=== PATIENT | male | born 1960 | race Caucasian/White ===

== ENCOUNTER 2017-11-12 07:30 | Inpatient (IN) | payer MEDICARE, OTHER ==
[2017-11-12] MEDS: CEFEPIME 2GM/50 ML (PMX) 50 ML IVPB (08:00)
[2017-11-12 08:04] LABS: ADD MAN DIFF? NO
[2017-11-12 08:08] LABS: WHITE BLOOD COUNT 19.4 10^3/ul (4.8-10.8)
[2017-11-12 08:08] LABS: BASOPHILS % 0.2 % (0.0-2.0); EOSINOPHILS # 0.1 10^3/ul (0.0-0.5); EOSINOPHILS % 0.4 % (0.0-7.0); HEMATOCRIT 37.3 % (42.0-52.0); HEMOGLOBIN 11.4 g/dl (14.0-18.0); LYMPHOCYTES # 0.7 10^3/ul (0.8-2.9); LYMPHOCYTES % 3.7 % (15.0-51.0); MEAN CORPUSCULAR HEMOGLOBIN 28.7 pg (29.0-33.0); MEAN CORPUSCULAR HGB CONC 30.6 g/dl (32.0-37.0); MEAN PLATELET VOLUME 9.7 fl (7.4-10.4); MONOCYTE # 1.1 10^3/ul (0.3-0.9); MONOCYTES % 5.6 % (0.0-11.0); NEUTROPHIL # 17.4 10^3/ul (1.6-7.5); NEUTROPHILS % 89.7 % (39.0-77.0); PLATELET COUNT 225 10^3/UL (140-415); RED BLOOD COUNT 3.97 10^6/ul (4.70-6.10); RED CELL DISTRIBUTION WIDTH 12.6 % (11.5-14.5)
[2017-11-12 08:30] LABS: INR 1.04; PARTIAL THROMBOPLASTIN TIME 35.1 Sec (25.0-35.0); PROTIME 13.7 Sec (11.9-14.9); PT RATIO 1.1
[2017-11-12] MEDS: morphine 4 MG/ML VIAL IV (08:32)
[2017-11-12 08:37] LABS: LACTIC ACID 0.8 mmol/L (0.5-2.0)
[2017-11-12 08:43] LABS: ALANINE AMINOTRANSFERASE 31 IU/L (13-69); ALBUMIN 4.1 g/dl (3.3-4.9); ALBUMIN/GLOBULIN RATIO 1.07; ALKALINE PHOSPHATASE 150 IU/L (42-121); ASPARTATE AMINO TRANSFERASE 21 IU/L (15-46); BILIRUBIN,INDIRECT 0.1 mg/dl (0-1.1); BILIRUBIN,TOTAL 0.1 mg/dl (0.2-1.3); BLOOD UREA NITROGEN 12 mg/dl (7-20); CALCIUM 9.6 mg/dl (8.4-10.2); CHLORIDE 94 mmol/L (97-110); CREATININE 0.58 mg/dl (0.61-1.24); GLUCOSE 107 mg/dl (70-220); POTASSIUM 4.3 mmol/L (3.5-5.1); SODIUM 146 mmol/L (135-144); TOTAL PROTEIN 7.9 g/dl (6.1-8.1)
[2017-11-12 09:04] LABS: ANION GAP 15 (8-16); TROPONIN-I < 0.012 ng/ml (0.00-0.12)
[2017-11-12 09:07] LABS: CARBON DIOXIDE 41 mmol/L (21-31)
[2017-11-12] MEDS: LACTATED RINGER'S 2,330 ML IV (09:43)
[2017-11-12] MEDS ORDERED: ARTIFICIAL TEARS 15 ML OPH BOTH EYES (10:00)
[2017-11-12] MEDS ORDERED: ACETAMINOPHEN 325 MG TAB PO (10:00)
[2017-11-12] MEDS ORDERED: BISACODYL 10 MG SUPP PR (10:00)
[2017-11-12] MEDS ORDERED: MAGNESIUM HYDROXIDE 30ML CUP PO (10:00)
[2017-11-12] MEDS ORDERED: ONDANSETRON 4 MG INJ IV (10:00)
[2017-11-12 10:16] LABS: ADD UMIC NO; UR ASCORBIC ACID 40 mg/dL (NEGATIVE); UR BACTERIA FEW /HPF (NONE SEEN); UR BILIRUBIN (Dip) NEGATIVE (NEGATIVE); UR BLOOD (Dip) NEGATIVE (NEGATIVE); UR CLARITY SLIGHTLY CLOUDY (CLEAR); UR COLOR YELLOW (YELLOW); UR GLUCOSE (Dip) NEGATIVE (NEGATIVE); UR KETONES (Dip) TRACE mg/dL (NEGATIVE); UR LEUKOCYTE ESTERASE (Dip) NEGATIVE Leu/ul (NEGATIVE); UR MUCUS MANY /HPF (NONE SEEN); UR NITRITE (Dip) NEGATIVE (NEGATIVE); UR RBC 0 /HPF (0-5); UR SPECIFIC GRAVITY (Dip) 1.024 (1.003-1.030); UR TOTAL PROTEIN (Dip) NEGATIVE (NEGATIVE); UR UROBILINOGEN (Dip) NEGATIVE (NEGATIVE); UR WBC 2 /HPF (0-5)
[2017-11-12 10:42] LABS: LACTIC ACID 0.7 mmol/L (0.5-2.0)
[2017-11-12] MEDS: ACETAMINOPHEN 325 MG TAB PO ×3 (12:00→23:51)
[2017-11-12 12:48] LABS: LACTIC ACID 0.7 mmol/L (0.5-2.0)
[2017-11-12] MEDS: ALBUTEROL 0.083% (NEB) 2.5 MG/3 ML AMP NEB (15:05)
[2017-11-12] MEDS: PANTOPRAZOLE (EC) 40 MG TAB PO (15:18)
[2017-11-12] MEDS ORDERED: NON-FORMULARY/PATIENT OWN MED (Omeprazole* 20 MG) PO (21:00)
[2017-11-12] MEDS: METOPROLOL 25 MG TAB PO ×2 (21:00→22:22)
[2017-11-12] MEDS: CHLORHEXIDINE GLUCONATE 15 ML UD CUP MM (21:06)
[2017-11-12] MEDS: HYDROCODONE/APAP (5/325) TAB PO (21:06)
[2017-11-12] MEDS: ATORVASTATIN 10 MG TAB PO (21:07)
[2017-11-12] MEDS: AMITRIPTYLINE 25 MG TAB PO (21:07)
[2017-11-12] MEDS: RANITIDINE 150 MG TAB PO (21:08)
[2017-11-12] MEDS: CHOLESTYRAMINE 4 GM PACKET PO (22:13)
[2017-11-13] MEDS: ACETAMINOPHEN 325 MG TAB PO ×3 (01:46→06:59)
[2017-11-13] MEDS: clonAZEPAM 0.5 MG TAB PO ×2 (02:26→23:12)
[2017-11-13] MEDS: PANTOPRAZOLE (EC) 40 MG TAB PO (06:59)
[2017-11-13 08:43] LABS: ADD MAN DIFF? NO
[2017-11-13 08:52] LABS: WHITE BLOOD COUNT 11.5 10^3/ul (4.8-10.8)
[2017-11-13 08:52] LABS: BASOPHILS % 0.2 % (0.0-2.0); EOSINOPHILS # 0.3 10^3/ul (0.0-0.5); EOSINOPHILS % 2.9 % (0.0-7.0); HEMATOCRIT 30.9 % (42.0-52.0); HEMOGLOBIN 9.7 g/dl (14.0-18.0); LYMPHOCYTES # 1.5 10^3/ul (0.8-2.9); LYMPHOCYTES % 12.6 % (15.0-51.0); MEAN CORPUSCULAR HEMOGLOBIN 29.2 pg (29.0-33.0); MEAN CORPUSCULAR HGB CONC 31.4 g/dl (32.0-37.0); MEAN CORPUSCULAR VOLUME 93.1 fl (82.0-101.0); MONOCYTES % 8.2 % (0.0-11.0); NEUTROPHIL # 8.7 10^3/ul (1.6-7.5); NEUTROPHILS % 75.6 % (39.0-77.0); PLATELET COUNT 216 10^3/UL (140-415); RED BLOOD COUNT 3.32 10^6/ul (4.70-6.10); RED CELL DISTRIBUTION WIDTH 12.4 % (11.5-14.5)
[2017-11-13 09:09] LABS: BLOOD UREA NITROGEN 21 mg/dl (7-20); CALCIUM 9.5 mg/dl (8.4-10.2); CHLORIDE 93 mmol/L (97-110); CREATININE 0.52 mg/dl (0.61-1.24); GLUCOSE 73 mg/dl (70-220); MAGNESIUM 1.8 mg/dl (1.7-2.5); PHOSPHORUS 3.9 mg/dl (2.5-4.9); SODIUM 142 mmol/L (135-144)
[2017-11-13 09:16] LABS: ANION GAP 13 (8-16)
[2017-11-13] MEDS: CEFEPIME 1GM/50 ML (PMX) 50 ML IVPB ×2 (09:17→21:51)
[2017-11-13] MEDS: ASCORBIC ACID 500 MG TAB PO (09:18)
[2017-11-13] MEDS: MAGNESIUM OXIDE 400 MG TAB PO (09:18)
[2017-11-13] MEDS: MULTIVITAMINS THERAPEUTIC TAB PO (09:18)
[2017-11-13] MEDS: ASPIRIN (EC) 81 MG TAB PO (09:18)
[2017-11-13] MEDS: LORATADINE 10 MG TAB PO (09:18)
[2017-11-13] MEDS: RANITIDINE 150 MG TAB PO ×2 (09:18→21:50)
[2017-11-13] MEDS: CHLORHEXIDINE GLUCONATE 15 ML UD CUP MM ×2 (09:19→21:51)
[2017-11-13] MEDS: METOPROLOL 25 MG TAB PO ×2 (09:19→21:50)
[2017-11-13] MEDS: CHOLESTYRAMINE 4 GM PACKET PO ×2 (09:19→21:50)
[2017-11-13 09:21] LABS: FREE T4 (FREE THYROXINE) 2.29 ng/dl (0.64-1.79)
[2017-11-13 09:24] LABS: CARBON DIOXIDE 40 mmol/L (21-31)
[2017-11-13 10:47] LABS: THYROID STIMULATING HORMONE < 0.015 MIU/L (0.465-4.680)
[2017-11-13] MEDS ORDERED: ACETAMINOPHEN 325 MG TAB PO (11:30)
[2017-11-13] MEDS: ALBUTEROL 0.083% (NEB) 2.5 MG/3 ML AMP NEB ×4 (13:17→23:36)
[2017-11-13] MEDS: AMITRIPTYLINE 25 MG TAB PO (21:50)
[2017-11-13] MEDS: ATORVASTATIN 10 MG TAB PO (21:50)
[2017-11-14] MEDS: ALBUTEROL 0.083% (NEB) 2.5 MG/3 ML AMP NEB ×6 (05:12→23:52)
[2017-11-14] MEDS: PANTOPRAZOLE (EC) 40 MG TAB PO (05:33)
[2017-11-14 05:53] LABS: AADO2 Arterial 140.6 mmHg (7.0-24.0); Allen Test ACCEPTAB; Arterial Base Excess 11.5 mmol/L (-3.0-3); Arterial Blood Gas Oxygen Sat 95.4 mmHG (95.0-98.0); Arterial COHb 0.3 % (0.0-3.0); Arterial Fraction of Oxyhgb 94.9 % (93.0-99.0); Arterial HCO3 37.5 mmol/L (22.0-26.0); Arterial MetHb 0.2 % (0.0-1.5); Arterial Total Hemglobin 10.9 g/dl (12.0-18.0); Arterial pCO2 56.6 mmhg (35-45); MODE VENT - AC; Site Left Radial
[2017-11-14 06:46] LABS: ADD MAN DIFF? NO
[2017-11-14 06:54] LABS: WHITE BLOOD COUNT 10.4 10^3/ul (4.8-10.8)
[2017-11-14 06:54] LABS: BASOPHILS % 0.2 % (0.0-2.0); EOSINOPHILS # 0.4 10^3/ul (0.0-0.5); EOSINOPHILS % 3.4 % (0.0-7.0); HEMATOCRIT 30.6 % (42.0-52.0); HEMOGLOBIN 9.7 g/dl (14.0-18.0); LYMPHOCYTES # 1.4 10^3/ul (0.8-2.9); LYMPHOCYTES % 13.1 % (15.0-51.0); MEAN CORPUSCULAR HGB CONC 31.7 g/dl (32.0-37.0); MEAN CORPUSCULAR VOLUME 91.3 fl (82.0-101.0); MEAN PLATELET VOLUME 9.9 fl (7.4-10.4); MONOCYTE # 0.9 10^3/ul (0.3-0.9); MONOCYTES % 8.6 % (0.0-11.0); NEUTROPHIL # 7.7 10^3/ul (1.6-7.5); NEUTROPHILS % 74.2 % (39.0-77.0); PLATELET COUNT 233 10^3/UL (140-415); RED BLOOD COUNT 3.35 10^6/ul (4.70-6.10); RED CELL DISTRIBUTION WIDTH 12.4 % (11.5-14.5)
[2017-11-14 07:31] LABS: ALANINE AMINOTRANSFERASE 24 IU/L (13-69); ALBUMIN 3.1 g/dl (3.3-4.9); ALKALINE PHOSPHATASE 106 IU/L (42-121); ANION GAP 14 (8-16); ASPARTATE AMINO TRANSFERASE 16 IU/L (15-46); BILIRUBIN,INDIRECT 0.1 mg/dl (0-1.1); BILIRUBIN,TOTAL 0.1 mg/dl (0.2-1.3); BLOOD UREA NITROGEN 16 mg/dl (7-20); CALCIUM 9.1 mg/dl (8.4-10.2); CHLORIDE 94 mmol/L (97-110); CREATININE 0.52 mg/dl (0.61-1.24); GLUCOSE 89 mg/dl (70-220); PHOSPHORUS 4.3 mg/dl (2.5-4.9); POTASSIUM 3.9 mmol/L (3.5-5.1); SODIUM 144 mmol/L (135-144); TOTAL PROTEIN 6.2 g/dl (6.1-8.1)
[2017-11-14 07:47] LABS: CARBON DIOXIDE 40 mmol/L (21-31)
[2017-11-14] MEDS: CEFEPIME 1GM/50 ML (PMX) 50 ML IVPB ×2 (08:35→20:53)
[2017-11-14] MEDS: ASPIRIN (EC) 81 MG TAB PO (08:36)
[2017-11-14] MEDS: RANITIDINE 150 MG TAB PO ×2 (08:36→20:54)
[2017-11-14] MEDS: MULTIVITAMINS THERAPEUTIC TAB PO (08:36)
[2017-11-14] MEDS: MAGNESIUM OXIDE 400 MG TAB PO (08:36)
[2017-11-14] MEDS: ASCORBIC ACID 500 MG TAB PO (08:36)
[2017-11-14] MEDS: LORATADINE 10 MG TAB PO (08:36)
[2017-11-14] MEDS: METOPROLOL 25 MG TAB PO ×2 (08:37→20:54)
[2017-11-14] MEDS: ENOXAPARIN 30 MG/0.3 ML SYG SC (08:42)
[2017-11-14] MEDS: CHOLESTYRAMINE 4 GM PACKET PO ×2 (08:43→20:55)
[2017-11-14] MEDS: CHLORHEXIDINE GLUCONATE 15 ML UD CUP MM ×2 (08:43→20:55)
[2017-11-14] MEDS: HYDROCODONE/APAP (5/325) TAB PO (09:08)
[2017-11-14] MEDS: MUPIROCIN 2% 22 GM OINT TOP ×2 (12:30→20:55)
[2017-11-14] MEDS: AMITRIPTYLINE 25 MG TAB PO (20:54)
[2017-11-14] MEDS: ATORVASTATIN 10 MG TAB PO (20:54)
[2017-11-15] MEDS: HYDROCODONE/APAP (5/325) TAB PO (01:20)
[2017-11-15] MEDS: ALBUTEROL 0.083% (NEB) 2.5 MG/3 ML AMP NEB ×6 (04:58→23:11)
[2017-11-15] MEDS: PANTOPRAZOLE (EC) 40 MG TAB PO (05:08)
[2017-11-15] MEDS: clonAZEPAM 0.5 MG TAB PO ×2 (05:08→15:53)
[2017-11-15] MEDS: METOPROLOL 25 MG TAB PO (08:56)
[2017-11-15 08:57] LABS: ADD MAN DIFF? NO
[2017-11-15] MEDS: CHLORHEXIDINE GLUCONATE 15 ML UD CUP MM ×2 (09:00→21:09)
[2017-11-15] MEDS: CHOLESTYRAMINE 4 GM PACKET PO ×2 (09:00→21:12)
[2017-11-15 09:03] LABS: WHITE BLOOD COUNT 8.3 10^3/ul (4.8-10.8)
[2017-11-15 09:03] LABS: BASOPHILS % 0.2 % (0.0-2.0); EOSINOPHILS # 0.3 10^3/ul (0.0-0.5); HEMATOCRIT 28.9 % (42.0-52.0); HEMOGLOBIN 9.1 g/dl (14.0-18.0); LYMPHOCYTES # 1.4 10^3/ul (0.8-2.9); MEAN CORPUSCULAR HEMOGLOBIN 28.7 pg (29.0-33.0); MEAN CORPUSCULAR HGB CONC 31.5 g/dl (32.0-37.0); MEAN CORPUSCULAR VOLUME 91.2 fl (82.0-101.0); MEAN PLATELET VOLUME 9.4 fl (7.4-10.4); MONOCYTE # 0.9 10^3/ul (0.3-0.9); MONOCYTES % 10.8 % (0.0-11.0); NEUTROPHIL # 5.6 10^3/ul (1.6-7.5); NEUTROPHILS % 67.4 % (39.0-77.0); PLATELET COUNT 212 10^3/UL (140-415); RED BLOOD COUNT 3.17 10^6/ul (4.70-6.10); RED CELL DISTRIBUTION WIDTH 12.4 % (11.5-14.5)
[2017-11-15] MEDS: CEFEPIME 1GM/50 ML (PMX) 50 ML IVPB ×2 (09:16→21:10)
[2017-11-15 09:19] LABS: LACTIC ACID 0.8 mmol/L (0.5-2.0)
[2017-11-15] MEDS: ASPIRIN (EC) 81 MG TAB PO (09:20)
[2017-11-15] MEDS: ASCORBIC ACID 500 MG TAB PO (09:20)
[2017-11-15] MEDS: MULTIVITAMINS THERAPEUTIC TAB PO (09:20)
[2017-11-15] MEDS: LORATADINE 10 MG TAB PO (09:20)
[2017-11-15] MEDS: MAGNESIUM OXIDE 400 MG TAB PO (09:20)
[2017-11-15] MEDS: RANITIDINE 150 MG TAB PO ×2 (09:21→21:10)
[2017-11-15] MEDS: MUPIROCIN 2% 22 GM OINT TOP ×2 (09:21→21:10)
[2017-11-15 09:28] LABS: ALANINE AMINOTRANSFERASE 27 IU/L (13-69); ALBUMIN 3.2 g/dl (3.3-4.9); ALKALINE PHOSPHATASE 90 IU/L (42-121); ANION GAP 13 (8-16); ASPARTATE AMINO TRANSFERASE 15 IU/L (15-46); BLOOD UREA NITROGEN 14 mg/dl (7-20); CALCIUM 9.1 mg/dl (8.4-10.2); CARBON DIOXIDE 38 mmol/L (21-31); CHLORIDE 98 mmol/L (97-110); CREATININE 0.54 mg/dl (0.61-1.24); GLUCOSE 86 mg/dl (70-220); MAGNESIUM 2.1 mg/dl (1.7-2.5); PHOSPHORUS 3.9 mg/dl (2.5-4.9); POTASSIUM 3.9 mmol/L (3.5-5.1); SODIUM 145 mmol/L (135-144); TOTAL PROTEIN 6.4 g/dl (6.1-8.1)
[2017-11-15] MEDS: ENOXAPARIN 30 MG/0.3 ML SYG SC (09:31)
[2017-11-15] MEDS: SOD CHLORIDE 0.9% IVPB (17:36)
[2017-11-15] MEDS: DAPTOMYCIN IVPB (17:36)
[2017-11-15] MEDS: METHIMAZOLE 5 MG TAB PO (18:33)
[2017-11-15] MEDS ORDERED: ZYVOX 600 MG TAB PO (21:00)
[2017-11-15] MEDS: ATORVASTATIN 10 MG TAB PO (21:09)
[2017-11-15] MEDS: PROPRANOLOL 20 MG TAB PO (21:10)
[2017-11-15] MEDS: AMITRIPTYLINE 25 MG TAB PO (21:10)
[2017-11-16] MEDS: ALBUTEROL 0.083% (NEB) 2.5 MG/3 ML AMP NEB ×4 (01:20→20:34)
[2017-11-16] MEDS: PANTOPRAZOLE (EC) 40 MG TAB PO (05:33)
[2017-11-16] MEDS: CHOLESTYRAMINE 4 GM PACKET PO ×2 (08:13→21:00)
[2017-11-16] MEDS: CHLORHEXIDINE GLUCONATE 15 ML UD CUP MM ×2 (08:13→21:00)
[2017-11-16 08:52] LABS: ADD MAN DIFF? NO
[2017-11-16 09:02] LABS: WHITE BLOOD COUNT 8.8 10^3/ul (4.8-10.8)
[2017-11-16 09:02] LABS: BASOPHILS % 0.5 % (0.0-2.0); EOSINOPHILS # 0.3 10^3/ul (0.0-0.5); EOSINOPHILS % 3.8 % (0.0-7.0); HEMATOCRIT 31.2 % (42.0-52.0); HEMOGLOBIN 9.7 g/dl (14.0-18.0); LYMPHOCYTES # 1.5 10^3/ul (0.8-2.9); LYMPHOCYTES % 17.1 % (15.0-51.0); MEAN CORPUSCULAR HGB CONC 31.1 g/dl (32.0-37.0); MEAN CORPUSCULAR VOLUME 93.1 fl (82.0-101.0); MEAN PLATELET VOLUME 9.5 fl (7.4-10.4); MONOCYTE # 0.8 10^3/ul (0.3-0.9); MONOCYTES % 9.3 % (0.0-11.0); NEUTROPHILS % 68.3 % (39.0-77.0); PLATELET COUNT 233 10^3/UL (140-415); RED BLOOD COUNT 3.35 10^6/ul (4.70-6.10); RED CELL DISTRIBUTION WIDTH 12.3 % (11.5-14.5)
[2017-11-16] MEDS: ASCORBIC ACID 500 MG TAB PO (09:11)
[2017-11-16] MEDS: MULTIVITAMINS THERAPEUTIC TAB PO (09:11)
[2017-11-16] MEDS: METHIMAZOLE 5 MG TAB PO (09:11)
[2017-11-16] MEDS: RANITIDINE 150 MG TAB PO (09:11)
[2017-11-16] MEDS: LORATADINE 10 MG TAB PO (09:11)
[2017-11-16] MEDS: MAGNESIUM OXIDE 400 MG TAB PO (09:11)
[2017-11-16] MEDS: ASPIRIN (EC) 81 MG TAB PO (09:11)
[2017-11-16] MEDS: PROPRANOLOL 20 MG TAB PO ×2 (09:12→14:22)
[2017-11-16] MEDS: MUPIROCIN 2% 22 GM OINT TOP (09:12)
[2017-11-16] MEDS: CEFEPIME 1GM/50 ML (PMX) 50 ML IVPB (09:12)
[2017-11-16] MEDS: ENOXAPARIN 30 MG/0.3 ML SYG SC (09:30)
[2017-11-16 10:07] LABS: CREATINE KINASE 24 IU/L (23-200)
[2017-11-16 10:12] LABS: ANION GAP 12 (8-16); BLOOD UREA NITROGEN 13 mg/dl (7-20); CALCIUM 9.2 mg/dl (8.4-10.2); CARBON DIOXIDE 36 mmol/L (21-31); CHLORIDE 98 mmol/L (97-110); CREATININE 0.58 mg/dl (0.61-1.24); GLUCOSE 102 mg/dl (70-220); PHOSPHORUS 4.2 mg/dl (2.5-4.9); POTASSIUM 4.1 mmol/L (3.5-5.1); SODIUM 142 mmol/L (135-144)
[2017-11-16] MEDS: HYDROCODONE/APAP (5/325) TAB PO ×2 (14:22→17:13)
[2017-11-16] MEDS ORDERED: DAPTOMYCIN 460 MG in SOD CHLORIDE 0.9% 100 ML IVPB (15:30)
[2017-11-17] MEDS: CHOLESTYRAMINE 4 GM PACKET PO ×3 (00:09→21:00)
[2017-11-17] MEDS: ATORVASTATIN 10 MG TAB PO ×2 (00:10→21:21)
[2017-11-17] MEDS: CEFEPIME 1GM/50 ML (PMX) 50 ML IVPB ×3 (00:10→21:21)
[2017-11-17] MEDS: CHLORHEXIDINE GLUCONATE 15 ML UD CUP MM ×3 (00:10→21:21)
[2017-11-17] MEDS: PROPRANOLOL 20 MG TAB PO ×4 (00:11→22:12)
[2017-11-17] MEDS: RANITIDINE 150 MG TAB PO ×3 (00:11→22:12)
[2017-11-17] MEDS: AMITRIPTYLINE 25 MG TAB PO ×2 (00:11→21:21)
[2017-11-17] MEDS: MUPIROCIN 2% 22 GM OINT TOP ×3 (00:12→21:21)
[2017-11-17] MEDS: clonAZEPAM 0.5 MG TAB PO ×2 (01:14→15:41)
[2017-11-17] MEDS: ALBUTEROL 0.083% (NEB) 2.5 MG/3 ML AMP NEB ×4 (02:30→22:24)
[2017-11-17] MEDS: PANTOPRAZOLE (EC) 40 MG TAB PO (06:47)
[2017-11-17] MEDS: ASPIRIN (EC) 81 MG TAB PO (09:14)
[2017-11-17] MEDS: ASCORBIC ACID 500 MG TAB PO (09:14)
[2017-11-17] MEDS: LORATADINE 10 MG TAB PO (09:14)
[2017-11-17] MEDS: METHIMAZOLE 5 MG TAB PO (09:14)
[2017-11-17] MEDS: MULTIVITAMINS THERAPEUTIC TAB PO (09:14)
[2017-11-17] MEDS: MAGNESIUM OXIDE 400 MG TAB PO (09:15)
[2017-11-17] MEDS: ENOXAPARIN 30 MG/0.3 ML SYG SC (09:57)
[2017-11-17 12:36] LABS: THYROID MICROSOMAL ANTIBODY 1 IU/mL (<9)
[2017-11-17] MEDS: HYDROCODONE/APAP (5/325) TAB PO (16:42)
[2017-11-18] MEDS: ALBUTEROL 0.083% (NEB) 2.5 MG/3 ML AMP NEB ×5 (02:07→23:24)
[2017-11-18] MEDS: HYDROCODONE/APAP (5/325) TAB PO ×2 (02:14→09:25)
[2017-11-18] MEDS: ALBUTEROL HFA 8 GM INHALER INH ×4 (05:27→19:38)
[2017-11-18] MEDS: clonAZEPAM 0.5 MG TAB PO (06:05)
[2017-11-18] MEDS: PANTOPRAZOLE (EC) 40 MG TAB PO (06:05)
[2017-11-18 07:49] LABS: ADD MAN DIFF? NO
[2017-11-18 07:51] LABS: WHITE BLOOD COUNT 10.1 10^3/ul (4.8-10.8)
[2017-11-18 07:51] LABS: BASOPHIL # 0.1 10^3/ul (0.0-0.1); BASOPHILS % 0.5 % (0.0-2.0); EOSINOPHILS # 0.5 10^3/ul (0.0-0.5); EOSINOPHILS % 4.4 % (0.0-7.0); HEMATOCRIT 32.4 % (42.0-52.0); HEMOGLOBIN 10.4 g/dl (14.0-18.0); LYMPHOCYTES # 1.6 10^3/ul (0.8-2.9); MEAN CORPUSCULAR HEMOGLOBIN 29.2 pg (29.0-33.0); MEAN CORPUSCULAR HGB CONC 32.1 g/dl (32.0-37.0); MEAN PLATELET VOLUME 9.4 fl (7.4-10.4); MONOCYTE # 0.8 10^3/ul (0.3-0.9); MONOCYTES % 7.8 % (0.0-11.0); NEUTROPHIL # 7.1 10^3/ul (1.6-7.5); NEUTROPHILS % 70.2 % (39.0-77.0); PLATELET COUNT 277 10^3/UL (140-415); RED BLOOD COUNT 3.56 10^6/ul (4.70-6.10); RED CELL DISTRIBUTION WIDTH 12.1 % (11.5-14.5)
[2017-11-18 08:31] LABS: BLOOD UREA NITROGEN 15 mg/dl (7-20); CALCIUM 8.8 mg/dl (8.4-10.2); CHLORIDE 95 mmol/L (97-110); CREATININE 0.66 mg/dl (0.61-1.24); GLUCOSE 101 mg/dl (70-220); PHOSPHORUS 4.4 mg/dl (2.5-4.9); POTASSIUM 4.1 mmol/L (3.5-5.1); SODIUM 143 mmol/L (135-144)
[2017-11-18 08:35] LABS: ANION GAP 12 (8-16)
[2017-11-18 08:37] LABS: CARBON DIOXIDE 40 mmol/L (21-31)
[2017-11-18] MEDS: CEFEPIME 1GM/50 ML (PMX) 50 ML IVPB ×3 (09:00→21:24)
[2017-11-18] MEDS: CHOLESTYRAMINE 4 GM PACKET PO ×2 (09:16→21:24)
[2017-11-18] MEDS: METHIMAZOLE 5 MG TAB PO (09:16)
[2017-11-18] MEDS: CHLORHEXIDINE GLUCONATE 15 ML UD CUP MM ×2 (09:16→21:24)
[2017-11-18] MEDS: MUPIROCIN 2% 22 GM OINT TOP ×2 (09:16→21:25)
[2017-11-18] MEDS: MULTIVITAMINS THERAPEUTIC TAB PO (09:17)
[2017-11-18] MEDS: PROPRANOLOL 20 MG TAB PO ×3 (09:17→21:00)
[2017-11-18] MEDS: MAGNESIUM OXIDE 400 MG TAB PO (09:17)
[2017-11-18] MEDS: ASCORBIC ACID 500 MG TAB PO (09:17)
[2017-11-18] MEDS: RANITIDINE 150 MG TAB PO ×2 (09:17→21:24)
[2017-11-18] MEDS: ASPIRIN (EC) 81 MG TAB PO (09:17)
[2017-11-18] MEDS: LORATADINE 10 MG TAB PO (09:18)
[2017-11-18] MEDS: ENOXAPARIN 30 MG/0.3 ML SYG SC (09:23)
[2017-11-18] MEDS: AMITRIPTYLINE 25 MG TAB PO (21:24)
[2017-11-18] MEDS: ATORVASTATIN 10 MG TAB PO (21:24)
[2017-11-19] MEDS: ALBUTEROL HFA 8 GM INHALER INH ×4 (02:00→20:00)
[2017-11-19] MEDS: clonAZEPAM 0.5 MG TAB PO ×2 (03:38→23:04)
[2017-11-19] MEDS: ALBUTEROL 0.083% (NEB) 2.5 MG/3 ML AMP NEB ×4 (04:17→20:00)
[2017-11-19] MEDS: PANTOPRAZOLE (EC) 40 MG TAB PO (06:40)
[2017-11-19] MEDS: CHLORHEXIDINE GLUCONATE 15 ML UD CUP MM ×2 (09:00→21:01)
[2017-11-19] MEDS: CHOLESTYRAMINE 4 GM PACKET PO ×2 (09:00→20:49)
[2017-11-19] MEDS: RANITIDINE 150 MG TAB PO ×2 (09:44→21:01)
[2017-11-19] MEDS: PROPRANOLOL 20 MG TAB PO ×3 (09:44→20:48)
[2017-11-19] MEDS: METHIMAZOLE 5 MG TAB PO (09:44)
[2017-11-19] MEDS: MAGNESIUM OXIDE 400 MG TAB PO (09:44)
[2017-11-19] MEDS: LORATADINE 10 MG TAB PO (09:44)
[2017-11-19] MEDS: HYDROCODONE/APAP (5/325) TAB PO ×2 (09:44→23:04)
[2017-11-19] MEDS: ASPIRIN (EC) 81 MG TAB PO (09:44)
[2017-11-19] MEDS: MULTIVITAMINS THERAPEUTIC TAB PO (09:44)
[2017-11-19] MEDS: ASCORBIC ACID 500 MG TAB PO (09:44)
[2017-11-19] MEDS: MUPIROCIN 2% 22 GM OINT TOP ×2 (09:45→21:02)
[2017-11-19] MEDS: CEFEPIME 1GM/50 ML (PMX) 50 ML IVPB ×2 (09:45→21:01)
[2017-11-19] MEDS: ENOXAPARIN 30 MG/0.3 ML SYG SC (09:52)
[2017-11-19] MEDS: ATORVASTATIN 10 MG TAB PO (21:01)
[2017-11-19] MEDS: AMITRIPTYLINE 25 MG TAB PO (21:01)
[2017-11-20] MEDS: ALBUTEROL 0.083% (NEB) 2.5 MG/3 ML AMP NEB ×5 (01:42→19:26)
[2017-11-20] MEDS: ALBUTEROL HFA 8 GM INHALER INH ×4 (02:00→19:25)
[2017-11-20] MEDS: PANTOPRAZOLE (EC) 40 MG TAB PO (06:04)
[2017-11-20] MEDS: CEFEPIME 1GM/50 ML (PMX) 50 ML IVPB ×2 (09:08→20:44)
[2017-11-20] MEDS: CHLORHEXIDINE GLUCONATE 15 ML UD CUP MM ×2 (09:09→20:45)
[2017-11-20] MEDS: MULTIVITAMINS THERAPEUTIC TAB PO (09:09)
[2017-11-20] MEDS: METHIMAZOLE 5 MG TAB PO (09:09)
[2017-11-20] MEDS: MAGNESIUM OXIDE 400 MG TAB PO (09:09)
[2017-11-20] MEDS: RANITIDINE 150 MG TAB PO ×2 (09:09→20:42)
[2017-11-20] MEDS: LORATADINE 10 MG TAB PO (09:09)
[2017-11-20] MEDS: ASCORBIC ACID 500 MG TAB PO (09:09)
[2017-11-20] MEDS: ASPIRIN (EC) 81 MG TAB PO (09:09)
[2017-11-20] MEDS: MUPIROCIN 2% 22 GM OINT TOP ×2 (09:10→20:43)
[2017-11-20] MEDS: PROPRANOLOL 20 MG TAB PO ×3 (09:10→20:43)
[2017-11-20] MEDS: CHOLESTYRAMINE 4 GM PACKET PO ×3 (09:10→20:46)
[2017-11-20] MEDS: ENOXAPARIN 30 MG/0.3 ML SYG SC (09:21)
[2017-11-20] MEDS: HYDROCODONE/APAP (5/325) TAB PO ×2 (09:24→20:43)
[2017-11-20] MEDS: ATORVASTATIN 10 MG TAB PO (20:43)
[2017-11-20] MEDS: AMITRIPTYLINE 25 MG TAB PO (20:43)
[2017-11-20] MEDS: clonAZEPAM 0.5 MG TAB PO (23:05)
[2017-11-21] MEDS: ALBUTEROL 0.083% (NEB) 2.5 MG/3 ML AMP NEB ×4 (01:01→19:47)
[2017-11-21] MEDS: ALBUTEROL HFA 8 GM INHALER INH ×4 (01:11→19:48)
[2017-11-21] MEDS: PANTOPRAZOLE (EC) 40 MG TAB PO (06:14)
[2017-11-21] MEDS: HYDROCODONE/APAP (5/325) TAB PO ×2 (06:15→18:20)
[2017-11-21] MEDS: CHOLESTYRAMINE 4 GM PACKET PO ×2 (09:00→21:00)
[2017-11-21] MEDS: MUPIROCIN 2% 22 GM OINT TOP ×2 (09:00→21:00)
[2017-11-21] MEDS: PROPRANOLOL 20 MG TAB PO ×3 (09:00→21:00)
[2017-11-21] MEDS: CEFEPIME 1GM/50 ML (PMX) 50 ML IVPB ×2 (09:15→21:36)
[2017-11-21] MEDS: LORATADINE 10 MG TAB PO (09:16)
[2017-11-21] MEDS: CHLORHEXIDINE GLUCONATE 15 ML UD CUP MM ×2 (09:16→21:00)
[2017-11-21] MEDS: ASPIRIN (EC) 81 MG TAB PO (09:16)
[2017-11-21] MEDS: MULTIVITAMINS THERAPEUTIC TAB PO (09:16)
[2017-11-21] MEDS: METHIMAZOLE 5 MG TAB PO (09:16)
[2017-11-21] MEDS: RANITIDINE 150 MG TAB PO ×2 (09:16→21:37)
[2017-11-21] MEDS: MAGNESIUM OXIDE 400 MG TAB PO (09:16)
[2017-11-21] MEDS: ASCORBIC ACID 500 MG TAB PO (09:17)
[2017-11-21] MEDS: ENOXAPARIN 30 MG/0.3 ML SYG SC (09:21)
[2017-11-21 09:27] LABS: ADD MAN DIFF? NO
[2017-11-21 09:33] LABS: WHITE BLOOD COUNT 12.7 10^3/ul (4.8-10.8)
[2017-11-21 09:33] LABS: BASOPHILS % 0.3 % (0.0-2.0); EOSINOPHILS # 0.3 10^3/ul (0.0-0.5); EOSINOPHILS % 2.5 % (0.0-7.0); HEMOGLOBIN 10.7 g/dl (14.0-18.0); LYMPHOCYTES % 16.1 % (15.0-51.0); MEAN CORPUSCULAR HEMOGLOBIN 28.8 pg (29.0-33.0); MEAN CORPUSCULAR HGB CONC 31.5 g/dl (32.0-37.0); MEAN CORPUSCULAR VOLUME 91.4 fl (82.0-101.0); MEAN PLATELET VOLUME 9.5 fl (7.4-10.4); MONOCYTE # 0.8 10^3/ul (0.3-0.9); MONOCYTES % 6.1 % (0.0-11.0); NEUTROPHIL # 9.4 10^3/ul (1.6-7.5); NEUTROPHILS % 74.1 % (39.0-77.0); PLATELET COUNT 288 10^3/UL (140-415); RED BLOOD COUNT 3.72 10^6/ul (4.70-6.10); RED CELL DISTRIBUTION WIDTH 12.4 % (11.5-14.5)
[2017-11-21 10:10] LABS: BLOOD UREA NITROGEN 12 mg/dl (7-20); CALCIUM 9.1 mg/dl (8.4-10.2); CHLORIDE 95 mmol/L (97-110); GLUCOSE 97 mg/dl (70-220); PHOSPHORUS 4.1 mg/dl (2.5-4.9); POTASSIUM 4.7 mmol/L (3.5-5.1); SODIUM 143 mmol/L (135-144)
[2017-11-21 10:43] LABS: ANION GAP 16 (8-16); CARBON DIOXIDE 37 mmol/L (21-31)
[2017-11-21] MEDS: AMITRIPTYLINE 25 MG TAB PO (21:36)
[2017-11-21] MEDS: ATORVASTATIN 10 MG TAB PO (21:37)
[2017-11-22] MEDS: ALBUTEROL HFA 8 GM INHALER INH ×4 (02:00→19:12)
[2017-11-22] MEDS: ALBUTEROL 0.083% (NEB) 2.5 MG/3 ML AMP NEB ×3 (02:40→14:08)
[2017-11-22] MEDS: PANTOPRAZOLE (EC) 40 MG TAB PO (06:20)
[2017-11-22] MEDS: HYDROCODONE/APAP (5/325) TAB PO ×2 (06:21→20:45)
[2017-11-22] MEDS: CEFEPIME 1GM/50 ML (PMX) 50 ML IVPB (08:41)
[2017-11-22] MEDS: LORATADINE 10 MG TAB PO (08:42)
[2017-11-22] MEDS: CHLORHEXIDINE GLUCONATE 15 ML UD CUP MM ×2 (08:42→20:42)
[2017-11-22] MEDS: CHOLESTYRAMINE 4 GM PACKET PO ×2 (08:43→20:47)
[2017-11-22] MEDS: ASPIRIN (EC) 81 MG TAB PO (08:43)
[2017-11-22] MEDS: PROPRANOLOL 20 MG TAB PO ×3 (08:43→20:46)
[2017-11-22] MEDS: MAGNESIUM OXIDE 400 MG TAB PO (08:43)
[2017-11-22] MEDS: METHIMAZOLE 5 MG TAB PO (08:44)
[2017-11-22] MEDS: RANITIDINE 150 MG TAB PO ×2 (08:44→20:45)
[2017-11-22] MEDS: ASCORBIC ACID 500 MG TAB PO (08:44)
[2017-11-22] MEDS: MULTIVITAMINS THERAPEUTIC TAB PO (08:44)
[2017-11-22] MEDS: MUPIROCIN 2% 22 GM OINT TOP ×2 (08:46→20:48)
[2017-11-22] MEDS: ENOXAPARIN 30 MG/0.3 ML SYG SC (09:01)
[2017-11-22 09:57] LABS: FREE T4 (FREE THYROXINE) 1.85 ng/dl (0.64-1.79)
[2017-11-22 10:11] LABS: THYROID STIMULATING HORMONE 0.058 MIU/L (0.465-4.680)
[2017-11-22] MEDS: clonAZEPAM 0.5 MG TAB PO (14:27)
[2017-11-22] MEDS ORDERED: ALBUTEROL 0.083% (NEB) 2.5 MG/3 ML AMP NEB (19:00)
[2017-11-22] MEDS: ATORVASTATIN 10 MG TAB PO (20:43)
[2017-11-22] MEDS: AMITRIPTYLINE 25 MG TAB PO (20:45)
== END 2017-11-23 00:22 | DRG 870 ==
LOC: E/R 07:30 → TEL 09:38
PROC: 5A1955Z Respiratory Ventilation, Greater than 96 Consecutive Hours (ICD-10-PCS; principal; 2017-11-12)
DX: A41.9 Sepsis, unspecified organism (principal); J18.9 Pneumonia, unspecified organism; Z99.11 Dependence on respirator [ventilator] status; J96.11 Chronic respiratory failure with hypoxia; J44.9 Chronic obstructive pulmonary disease, unspecified; Z93.0 Tracheostomy status; I48.91 Unspecified atrial fibrillation; E05.90 Thyrotoxicosis, unspecified without thyrotoxic crisis or storm; I10 Essential (primary) hypertension; K21.9 Gastro-esophageal reflux disease without esophagitis; F31.9 Bipolar disorder, unspecified; I25.10 Atherosclerotic heart disease of native coronary artery without angina pectoris; D64.9 Anemia, unspecified; G89.4 Chronic pain syndrome; R13.10 Dysphagia, unspecified; K59.00 Constipation, unspecified; Z22.322 Carrier or suspected carrier of Methicillin resistant Staphylococcus aureus
CPT/HCPCS: 36415; 36600; 71045; 80048; 80053; 81001; 81003; 82550; 82803; 83605; 83735; 84100; 84439; 84443; 84484; 85025; 85610; 85730; 86376; 87040; 87081; 87086; 87400; 93005; 94002; 94003; 94640; 94664; 94799; 96365; 96366; 96375; 99291-25

== ENCOUNTER 2018-12-17 21:17 | Inpatient (IN) | payer MEDICARE, OTHER ==
[2018-12-17 21:39] LABS: ADD MAN DIFF? NO
[2018-12-17 21:41] LABS: WHITE BLOOD COUNT 17.7 10^3/ul (4.8-10.8)
[2018-12-17 21:41] LABS: BASOPHIL # 0.1 10^3/ul (0.0-0.1); BASOPHILS % 0.4 % (0.0-2.0); EOSINOPHILS # 0.1 10^3/ul (0.0-0.5); EOSINOPHILS % 0.5 % (0.0-7.0); HEMATOCRIT 39.2 % (42.0-52.0); HEMOGLOBIN 12.2 g/dl (14.0-18.0); LYMPHOCYTES # 1.2 10^3/ul (0.8-2.9); LYMPHOCYTES % 6.7 % (15.0-51.0); MEAN CORPUSCULAR HEMOGLOBIN 29.7 pg (29.0-33.0); MEAN CORPUSCULAR HGB CONC 31.1 g/dl (32.0-37.0); MEAN CORPUSCULAR VOLUME 95.4 fl (82.0-101.0); MEAN PLATELET VOLUME 9.2 fl (7.4-10.4); MONOCYTE # 0.9 10^3/ul (0.3-0.9); MONOCYTES % 5.1 % (0.0-11.0); NEUTROPHIL # 15.2 10^3/ul (1.6-7.5); NEUTROPHILS % 86.2 % (39.0-77.0); PLATELET COUNT 259 10^3/UL (140-415); RED BLOOD COUNT 4.11 10^6/ul (4.70-6.10); RED CELL DISTRIBUTION WIDTH 12.1 % (11.5-14.5)
[2018-12-17 22:06] LABS: BLOOD UREA NITROGEN 15 mg/dl (7-20); CALCIUM 9.7 mg/dl (8.4-10.2); CHLORIDE 93 mmol/L (97-110); CREATININE 0.67 mg/dl (0.61-1.24); Estimated GFR > 60 mL/min (>60); GLUCOSE 131 mg/dl (70-220); POTASSIUM 4.8 mmol/L (3.5-5.1); SODIUM 140 mmol/L (135-144)
[2018-12-17 22:13] LABS: ANION GAP 8 (5-13)
[2018-12-17 22:14] LABS: CARBON DIOXIDE 39 mmol/L (21-31)
[2018-12-17 22:18] LABS: TROPONIN-I < 0.012 ng/ml (0.000-0.120)
[2018-12-17] MEDS: SOD CHLORIDE 0.9% 500 ML IV (23:22)
[2018-12-17] MEDS: LEVOFLOXACIN 750MG/D5W (PMX) 150 ML IVPB (23:22)
[2018-12-17 23:24] LABS: AADO2 Arterial 138.6 mmHg (7.0-24.0); Allen Test ACCEPTAB; Arterial Base Excess 13.7 mmol/L (-3.0-3); Arterial Blood Gas Oxygen Sat 99.2 mmHG (95.0-98.0); Arterial COHb 0.3 % (0.0-3.0); Arterial Fraction of Oxyhgb 98.7 % (93.0-99.0); Arterial HCO3 42.1 mmol/L (22.0-26.0); Arterial MetHb 0.2 % (0.0-1.5); Arterial pCO2 73.3 mmhg (35-45); MODE VENT - AC; Site Right Radial
[2018-12-17] MEDS ORDERED: ONDANSETRON 4 MG INJ IV (23:30)
[2018-12-18] MEDS: ACETAMINOPHEN 325 MG TAB PO (00:23)
[2018-12-18 04:11] LABS: CREATINE KINASE 91 IU/L (23-200)
[2018-12-18 04:24] LABS: CK INDEX 1.9; TROPONIN-I < 0.012 ng/ml (0.000-0.120)
[2018-12-18] MEDS ORDERED: ARTIFICIAL TEARS 15 ML OPH BOTH EYES (05:00)
[2018-12-18] MEDS ORDERED: MAGNESIUM HYDROXIDE 30ML CUP PO (05:00)
[2018-12-18] MEDS ORDERED: ACETAMINOPHEN 325 MG TAB PO (05:00)
[2018-12-18] MEDS ORDERED: HYDROCODONE/APAP (5/325) TAB PO (05:00)
[2018-12-18] MEDS ORDERED: VANCOMYCIN IV PER PHARMACY XX (05:00)
[2018-12-18] MEDS ORDERED: BISACODYL 10 MG SUPP PR (05:00)
[2018-12-18] MEDS ORDERED: GLUCAGON 1 MG INJ IM (05:30)
[2018-12-18] MEDS ORDERED: GLUCOSE GEL 15 GRAM TUBE BUCCAL (05:30)
[2018-12-18] MEDS ORDERED: DEXTROSE 50% 50 ML SYRINGE IV ×2 (05:30)
[2018-12-18] MEDS ORDERED: GLUCOSE GEL 15 GRAM TUBE PO ×2 (05:30)
[2018-12-18 05:34] LABS: ADD MAN DIFF? NO
[2018-12-18 05:38] LABS: BASOPHIL # 0.1 10^3/ul (0.0-0.1); BASOPHILS % 0.3 % (0.0-2.0); EOSINOPHILS # 0.2 10^3/ul (0.0-0.5); EOSINOPHILS % 1.1 % (0.0-7.0); HEMATOCRIT 36.5 % (42.0-52.0); HEMOGLOBIN 11.3 g/dl (14.0-18.0); LYMPHOCYTES # 1.5 10^3/ul (0.8-2.9); LYMPHOCYTES % 9.6 % (15.0-51.0); MEAN CORPUSCULAR HEMOGLOBIN 30.1 pg (29.0-33.0); MEAN CORPUSCULAR VOLUME 97.3 fl (82.0-101.0); MEAN PLATELET VOLUME 9.5 fl (7.4-10.4); MONOCYTE # 1.1 10^3/ul (0.3-0.9); MONOCYTES % 7.4 % (0.0-11.0); NEUTROPHIL # 12.2 10^3/ul (1.6-7.5); NEUTROPHILS % 80.5 % (39.0-77.0); PLATELET COUNT 253 10^3/UL (140-415); RED BLOOD COUNT 3.75 10^6/ul (4.70-6.10); RED CELL DISTRIBUTION WIDTH 12.1 % (11.5-14.5)
[2018-12-18 05:38] LABS: WHITE BLOOD COUNT 15.2 10^3/ul (4.8-10.8)
[2018-12-18] MEDS: ALBUTEROL/IPRATROPIUM (NEB) 3 ML AMP HHN ×4 (05:48→21:18)
[2018-12-18] MEDS: PIPER-TAZO 3.375 GM IV (PMX) 100 ML IVPB ×3 (06:55→17:40)
[2018-12-18] MEDS: PANTOPRAZOLE (EC) 40 MG TAB PO ×2 (06:55→17:44)
[2018-12-18 07:08] LABS: BLOOD UREA NITROGEN 19 mg/dl (7-20); CALCIUM 9.6 mg/dl (8.4-10.2); CHLORIDE 90 mmol/L (97-110); CREATININE 0.81 mg/dl (0.61-1.24); Estimated GFR > 60 mL/min (>60); GLUCOSE 128 mg/dl (70-220); POTASSIUM 4.7 mmol/L (3.5-5.1); SODIUM 141 mmol/L (135-144)
[2018-12-18 07:20] LABS: ANION GAP 10 (5-13); CARBON DIOXIDE 41 mmol/L (21-31)
[2018-12-18] MEDS: CHLORHEXIDINE GLUCONATE 15 ML UD CUP MM ×2 (08:51→21:09)
[2018-12-18] MEDS: LORATADINE 10 MG TAB PO (08:52)
[2018-12-18] MEDS: RANITIDINE 150 MG TAB PO ×2 (08:52→21:10)
[2018-12-18] MEDS: METOPROLOL 25 MG TAB PO ×2 (08:52→21:10)
[2018-12-18] MEDS: MULTIVITAMINS THERAPEUTIC TAB PO (08:52)
[2018-12-18] MEDS: ASPIRIN (EC) 81 MG TAB PO (08:53)
[2018-12-18] MEDS: MAGNESIUM OXIDE 400 MG TAB PO (08:53)
[2018-12-18] MEDS: ASCORBIC ACID 500 MG TAB PO (08:53)
[2018-12-18] MEDS: CHOLESTYRAMINE 4 GM PACKET PO ×2 (08:56→21:00)
[2018-12-18] MEDS ORDERED: NON-FORMULARY/PATIENT OWN MED (Omeprazole* 20 MG) PO (09:00)
[2018-12-18] MEDS ORDERED: NON-FORMULARY/PATIENT OWN MED (Cran/Vitc/Mannose/Inulin/Brom (Uti-Stat Liquid) 3,875 MG) PO (09:00)
[2018-12-18 10:57] LABS: CREATINE KINASE 158 IU/L (23-200)
[2018-12-18 11:10] LABS: CK INDEX 0.8; CK-MB 1.28 ng/ml (0.0-2.4); TROPONIN-I < 0.012 ng/ml (0.000-0.120)
[2018-12-18] MEDS: clonAZEPAM 0.5 MG TAB PO (12:17)
[2018-12-18] MEDS: LINEZOLID 600 MG/D5W (PMX) 300 ML IVPB ×2 (12:18→21:18)
[2018-12-18] MEDS: morphine 2 MG INJ IV ×3 (13:03→21:34)
[2018-12-18] MEDS: SOD CHLORIDE 0.9% 1,000 ML IV ×2 (13:27→23:00)
[2018-12-18] MEDS: ENOXAPARIN 40 MG/0.4 ML SYG SC (13:38)
[2018-12-18] MEDS: NITROGLYCERIN (SL) 0.4 MG TAB SL (16:00)
[2018-12-18] MEDS: AMITRIPTYLINE 25 MG TAB PO (21:10)
[2018-12-18] MEDS: ATORVASTATIN 10 MG TAB PO (21:10)
[2018-12-19] MEDS: PIPER-TAZO 3.375 GM IV (PMX) 100 ML IVPB ×5 (00:23→23:29)
[2018-12-19 01:06] LABS: ADD UMIC NO; UR ASCORBIC ACID 40 mg/dL (NEGATIVE); UR BILIRUBIN (Dip) NEGATIVE (NEGATIVE); UR BLOOD (Dip) NEGATIVE (NEGATIVE); UR CLARITY SLIGHTLY CLOUDY (CLEAR); UR COLOR YELLOW (YELLOW); UR GLUCOSE (Dip) NEGATIVE (NEGATIVE); UR KETONES (Dip) NEGATIVE (NEGATIVE); UR LEUKOCYTE ESTERASE (Dip) NEGATIVE Leu/ul (NEGATIVE); UR NITRITE (Dip) NEGATIVE (NEGATIVE); UR RBC 1 /HPF (0-5); UR SPECIFIC GRAVITY (Dip) 1.024 (1.003-1.030); UR TOTAL PROTEIN (Dip) NEGATIVE (NEGATIVE); UR UROBILINOGEN (Dip) NEGATIVE (NEGATIVE); UR WBC 2 /HPF (0-5)
[2018-12-19] MEDS: ALBUTEROL/IPRATROPIUM (NEB) 3 ML AMP HHN ×5 (01:09→19:53)
[2018-12-19] MEDS: morphine 2 MG INJ IV ×6 (01:29→23:30)
[2018-12-19] MEDS: ACCU-CHEK XX (01:49)
[2018-12-19] MEDS: SOD CHLORIDE 0.9% 1,000 ML IV (02:20)
[2018-12-19 05:30] LABS: ADD MAN DIFF? NO
[2018-12-19 05:43] LABS: WHITE BLOOD COUNT 13.1 10^3/ul (4.8-10.8)
[2018-12-19 05:43] LABS: BASOPHIL # 0.1 10^3/ul (0.0-0.1); BASOPHILS % 0.5 % (0.0-2.0); EOSINOPHILS # 0.4 10^3/ul (0.0-0.5); EOSINOPHILS % 2.7 % (0.0-7.0); HEMATOCRIT 31.7 % (42.0-52.0); HEMOGLOBIN 9.7 g/dl (14.0-18.0); LYMPHOCYTES # 1.6 10^3/ul (0.8-2.9); LYMPHOCYTES % 12.3 % (15.0-51.0); MEAN CORPUSCULAR HEMOGLOBIN 29.8 pg (29.0-33.0); MEAN CORPUSCULAR HGB CONC 30.6 g/dl (32.0-37.0); MEAN CORPUSCULAR VOLUME 97.2 fl (82.0-101.0); MEAN PLATELET VOLUME 9.4 fl (7.4-10.4); MONOCYTES % 7.8 % (0.0-11.0); NEUTROPHIL # 9.9 10^3/ul (1.6-7.5); NEUTROPHILS % 75.9 % (39.0-77.0); PLATELET COUNT 199 10^3/UL (140-415); RED BLOOD COUNT 3.26 10^6/ul (4.70-6.10); RED CELL DISTRIBUTION WIDTH 12.3 % (11.5-14.5)
[2018-12-19 05:52] LABS: INR 1.02; PROTIME 13.5 Sec (11.9-14.9); PT RATIO 1.1
[2018-12-19 05:53] LABS: PARTIAL THROMBOPLASTIN TIME 31.5 Sec (23.0-35.0)
[2018-12-19] MEDS: PANTOPRAZOLE (EC) 40 MG TAB PO ×2 (05:54→18:43)
[2018-12-19 05:56] LABS: LACTIC ACID 1.7 mmol/L (0.5-2.0)
[2018-12-19 06:01] LABS: ANION GAP 6 (5-13); BLOOD UREA NITROGEN 17 mg/dl (7-20); CALCIUM 8.8 mg/dl (8.4-10.2); CARBON DIOXIDE 37 mmol/L (21-31); CHLORIDE 98 mmol/L (97-110); CREATININE 0.84 mg/dl (0.61-1.24); Estimated GFR > 60 mL/min (>60); GLUCOSE 85 mg/dl (70-220); PHOSPHORUS 3.5 mg/dl (2.5-4.9); POTASSIUM 4.4 mmol/L (3.5-5.1); SODIUM 141 mmol/L (135-144)
[2018-12-19] MEDS: CHOLESTYRAMINE 4 GM PACKET PO ×3 (09:00→20:34)
[2018-12-19] MEDS: ASCORBIC ACID 500 MG TAB PO (09:03)
[2018-12-19] MEDS: MAGNESIUM OXIDE 400 MG TAB PO (09:03)
[2018-12-19] MEDS: METOPROLOL 25 MG TAB PO ×2 (09:03→20:35)
[2018-12-19] MEDS: LINEZOLID 600 MG/D5W (PMX) 300 ML IVPB ×2 (09:03→20:34)
[2018-12-19] MEDS: LORATADINE 10 MG TAB PO (09:03)
[2018-12-19] MEDS: RANITIDINE 150 MG TAB PO ×2 (09:03→20:34)
[2018-12-19] MEDS: CHLORHEXIDINE GLUCONATE 15 ML UD CUP MM ×2 (09:03→20:33)
[2018-12-19] MEDS: MULTIVITAMINS THERAPEUTIC TAB PO (09:04)
[2018-12-19] MEDS: ASPIRIN (EC) 81 MG TAB PO (09:04)
[2018-12-19] MEDS: ENOXAPARIN 40 MG/0.4 ML SYG SC (09:20)
[2018-12-19] MEDS: clonAZEPAM 0.5 MG TAB PO ×2 (13:10→20:40)
[2018-12-19] MEDS: HYDROCODONE/APAP (5/325) TAB PO (16:44)
[2018-12-19] MEDS: ATORVASTATIN 10 MG TAB PO (20:34)
[2018-12-19] MEDS: AMITRIPTYLINE 25 MG TAB PO (20:34)
[2018-12-19] MEDS: LORAZEPAM 2 MG INJ IV (20:40)
[2018-12-20] MEDS: ALBUTEROL/IPRATROPIUM (NEB) 3 ML AMP HHN ×6 (01:03→22:44)
[2018-12-20] MEDS: ACCU-CHEK XX (02:00)
[2018-12-20] MEDS: PIPER-TAZO 3.375 GM IV (PMX) 100 ML IVPB ×2 (06:05→11:49)
[2018-12-20] MEDS: PANTOPRAZOLE (EC) 40 MG TAB PO ×2 (06:05→18:28)
[2018-12-20 06:35] LABS: ADD MAN DIFF? NO
[2018-12-20 06:41] LABS: BASOPHIL # 0.1 10^3/ul (0.0-0.1); BASOPHILS % 0.4 % (0.0-2.0); EOSINOPHILS # 0.4 10^3/ul (0.0-0.5); EOSINOPHILS % 3.8 % (0.0-7.0); HEMATOCRIT 31.5 % (42.0-52.0); HEMOGLOBIN 9.7 g/dl (14.0-18.0); LYMPHOCYTES # 1.4 10^3/ul (0.8-2.9); LYMPHOCYTES % 12.4 % (15.0-51.0); MEAN CORPUSCULAR HEMOGLOBIN 29.5 pg (29.0-33.0); MEAN CORPUSCULAR HGB CONC 30.8 g/dl (32.0-37.0); MEAN CORPUSCULAR VOLUME 95.7 fl (82.0-101.0); MEAN PLATELET VOLUME 9.6 fl (7.4-10.4); MONOCYTE # 0.9 10^3/ul (0.3-0.9); MONOCYTES % 7.7 % (0.0-11.0); NEUTROPHIL # 8.4 10^3/ul (1.6-7.5); NEUTROPHILS % 74.9 % (39.0-77.0); PLATELET COUNT 192 10^3/UL (140-415); RED BLOOD COUNT 3.29 10^6/ul (4.70-6.10); RED CELL DISTRIBUTION WIDTH 12.4 % (11.5-14.5)
[2018-12-20 06:41] LABS: WHITE BLOOD COUNT 11.2 10^3/ul (4.8-10.8)
[2018-12-20 07:16] LABS: ANION GAP 6 (5-13); BLOOD UREA NITROGEN 15 mg/dl (7-20); CALCIUM 8.8 mg/dl (8.4-10.2); CARBON DIOXIDE 37 mmol/L (21-31); CHLORIDE 99 mmol/L (97-110); CREATININE 0.82 mg/dl (0.61-1.24); Estimated GFR > 60 mL/min (>60); GLUCOSE 83 mg/dl (70-220); MAGNESIUM 2.3 mg/dl (1.7-2.5); PHOSPHORUS 2.9 mg/dl (2.5-4.9); POTASSIUM 3.8 mmol/L (3.5-5.1); SODIUM 142 mmol/L (135-144)
[2018-12-20] MEDS: ASPIRIN (EC) 81 MG TAB PO (08:24)
[2018-12-20] MEDS: RANITIDINE 150 MG TAB PO ×2 (08:24→20:22)
[2018-12-20] MEDS: LORATADINE 10 MG TAB PO (08:25)
[2018-12-20] MEDS: MULTIVITAMINS THERAPEUTIC TAB PO (08:25)
[2018-12-20] MEDS: METOPROLOL 25 MG TAB PO ×2 (08:25→20:21)
[2018-12-20] MEDS: MAGNESIUM OXIDE 400 MG TAB PO (08:25)
[2018-12-20] MEDS: LINEZOLID 600 MG/D5W (PMX) 300 ML IVPB ×2 (08:27→21:30)
[2018-12-20] MEDS: CHLORHEXIDINE GLUCONATE 15 ML UD CUP MM ×2 (08:27→20:20)
[2018-12-20] MEDS: CHOLESTYRAMINE 4 GM PACKET PO ×2 (08:27→20:22)
[2018-12-20] MEDS: morphine 2 MG INJ IV (08:27)
[2018-12-20] MEDS: ASCORBIC ACID 500 MG TAB PO (08:34)
[2018-12-20] MEDS: ENOXAPARIN 40 MG/0.4 ML SYG SC (08:36)
[2018-12-20] MEDS: morphine LIQ (10 MG/5 ML) CUP PO ×2 (12:37→18:28)
[2018-12-20] MEDS: clonAZEPAM 0.5 MG TAB PO ×2 (14:33→19:33)
[2018-12-20] MEDS: HYDROCODONE/APAP (5/325) TAB PO (20:21)
[2018-12-20] MEDS: ATORVASTATIN 10 MG TAB PO (20:22)
[2018-12-20] MEDS: AMITRIPTYLINE 25 MG TAB PO (20:22)
[2018-12-20] MEDS: MEROPENEM 1 GM/50ML(PMX) 50 ML IVPB (20:41)
[2018-12-21] MEDS: ACCU-CHEK XX (01:24)
[2018-12-21] MEDS: ALBUTEROL/IPRATROPIUM (NEB) 3 ML AMP HHN ×6 (03:11→21:23)
[2018-12-21] MEDS: PANTOPRAZOLE (EC) 40 MG TAB PO ×2 (05:05→18:01)
[2018-12-21 05:48] LABS: ADD MAN DIFF? NO
[2018-12-21 05:50] LABS: BASOPHILS % 0.4 % (0.0-2.0); EOSINOPHILS # 0.3 10^3/ul (0.0-0.5); HEMOGLOBIN 9.5 g/dl (14.0-18.0); LYMPHOCYTES # 1.5 10^3/ul (0.8-2.9); LYMPHOCYTES % 16.3 % (15.0-51.0); MEAN CORPUSCULAR HEMOGLOBIN 30.2 pg (29.0-33.0); MEAN CORPUSCULAR HGB CONC 31.7 g/dl (32.0-37.0); MEAN CORPUSCULAR VOLUME 95.2 fl (82.0-101.0); MEAN PLATELET VOLUME 8.9 fl (7.4-10.4); MONOCYTE # 0.8 10^3/ul (0.3-0.9); MONOCYTES % 8.3 % (0.0-11.0); NEUTROPHIL # 6.5 10^3/ul (1.6-7.5); NEUTROPHILS % 71.1 % (39.0-77.0); PLATELET COUNT 189 10^3/UL (140-415); RED BLOOD COUNT 3.15 10^6/ul (4.70-6.10); RED CELL DISTRIBUTION WIDTH 12.7 % (11.5-14.5)
[2018-12-21 05:50] LABS: WHITE BLOOD COUNT 9.2 10^3/ul (4.8-10.8)
[2018-12-21 06:34] LABS: ANION GAP 6 (5-13); BLOOD UREA NITROGEN 13 mg/dl (7-20); CALCIUM 8.8 mg/dl (8.4-10.2); CARBON DIOXIDE 31 mmol/L (21-31); CHLORIDE 103 mmol/L (97-110); CREATININE 0.67 mg/dl (0.61-1.24); Estimated GFR > 60 mL/min (>60); GLUCOSE 80 mg/dl (70-220); MAGNESIUM 2.4 mg/dl (1.7-2.5); POTASSIUM 3.7 mmol/L (3.5-5.1); SODIUM 140 mmol/L (135-144)
[2018-12-21] MEDS: MULTIVITAMINS THERAPEUTIC TAB PO (09:31)
[2018-12-21] MEDS: MAGNESIUM OXIDE 400 MG TAB PO (09:31)
[2018-12-21] MEDS: LORATADINE 10 MG TAB PO (09:31)
[2018-12-21] MEDS: ASCORBIC ACID 500 MG TAB PO (09:31)
[2018-12-21] MEDS: RANITIDINE 150 MG TAB PO ×2 (09:31→20:56)
[2018-12-21] MEDS: CHOLESTYRAMINE 4 GM PACKET PO ×2 (09:32→20:56)
[2018-12-21] MEDS: METOPROLOL 25 MG TAB PO ×2 (09:32→20:57)
[2018-12-21] MEDS: ASPIRIN (EC) 81 MG TAB PO (09:32)
[2018-12-21] MEDS: CHLORHEXIDINE GLUCONATE 15 ML UD CUP MM ×2 (09:32→20:55)
[2018-12-21] MEDS: MEROPENEM 1 GM/50ML(PMX) 50 ML IVPB ×2 (09:33→21:02)
[2018-12-21] MEDS: LINEZOLID 600 MG/D5W (PMX) 300 ML IVPB ×2 (09:33→22:21)
[2018-12-21] MEDS: morphine LIQ (10 MG/5 ML) CUP PO ×2 (09:34→20:58)
[2018-12-21] MEDS: ENOXAPARIN 40 MG/0.4 ML SYG SC (10:38)
[2018-12-21] MEDS: LORAZEPAM 2 MG INJ IV (12:38)
[2018-12-21 13:28] LABS: AADO2 Arterial 217.7 mmHg (7.0-24.0); Allen Test ACCEPTAB; Arterial Base Excess 3.8 mmol/L (-3.0-3); Arterial Blood Gas Oxygen Sat 99.6 mmHG (95.0-98.0); Arterial COHb 0.3 % (0.0-3.0); Arterial Fraction of Oxyhgb 98.8 % (93.0-99.0); Arterial HCO3 32.1 mmol/L (22.0-26.0); Arterial MetHb 0.5 % (0.0-1.5); MODE VENT - AC; Site Right Radial
[2018-12-21 14:09] LABS: TROPONIN-I < 0.012 ng/ml (0.000-0.120)
[2018-12-21] MEDS: clonAZEPAM 0.5 MG TAB PO (15:07)
[2018-12-21] MEDS: AMITRIPTYLINE 25 MG TAB PO (20:56)
[2018-12-21] MEDS: ATORVASTATIN 10 MG TAB PO (20:57)
[2018-12-22] MEDS: morphine LIQ (10 MG/5 ML) CUP PO ×3 (01:01→19:10)
[2018-12-22] MEDS: ALBUTEROL/IPRATROPIUM (NEB) 3 ML AMP HHN ×4 (01:13→17:00)
[2018-12-22] MEDS: ACCU-CHEK XX (01:22)
[2018-12-22] MEDS: HYDROCODONE/APAP (5/325) TAB PO (05:11)
[2018-12-22] MEDS: PANTOPRAZOLE (EC) 40 MG TAB PO ×2 (05:12→18:00)
[2018-12-22] MEDS: MEROPENEM 1 GM/50ML(PMX) 50 ML IVPB (09:34)
[2018-12-22] MEDS: CHLORHEXIDINE GLUCONATE 15 ML UD CUP MM (09:37)
[2018-12-22] MEDS: MULTIVITAMINS THERAPEUTIC TAB PO (09:37)
[2018-12-22] MEDS: LORATADINE 10 MG TAB PO (09:37)
[2018-12-22] MEDS: RANITIDINE 150 MG TAB PO (09:37)
[2018-12-22] MEDS: METOPROLOL 25 MG TAB PO (09:37)
[2018-12-22] MEDS: CHOLESTYRAMINE 4 GM PACKET PO (09:37)
[2018-12-22] MEDS: MAGNESIUM OXIDE 400 MG TAB PO (09:37)
[2018-12-22] MEDS: ASPIRIN (EC) 81 MG TAB PO (09:37)
[2018-12-22] MEDS: ENOXAPARIN 40 MG/0.4 ML SYG SC (09:42)
[2018-12-22] MEDS: ASCORBIC ACID 500 MG TAB PO (10:05)
[2018-12-22] MEDS: LINEZOLID 600 MG/D5W (PMX) 300 ML IVPB (10:05)
[2018-12-22] MEDS: clonAZEPAM 0.5 MG TAB PO (16:47)
[2018-12-22] MEDS ORDERED: DOXYCYCLINE 100 MG TAB PO (21:00)
== END 2018-12-22 19:52 | DRG 870 ==
LOC: 6WM 23:15 → E/R 21:17
PROC: 5A1955Z Respiratory Ventilation, Greater than 96 Consecutive Hours (ICD-10-PCS; principal; 2018-12-17)
DX: A41.1 Sepsis due to other specified staphylococcus (principal); J18.9 Pneumonia, unspecified organism; J96.12 Chronic respiratory failure with hypercapnia; J96.11 Chronic respiratory failure with hypoxia; Z99.11 Dependence on respirator [ventilator] status; I25.10 Atherosclerotic heart disease of native coronary artery without angina pectoris; I48.0 Paroxysmal atrial fibrillation; D64.9 Anemia, unspecified; E11.9 Type 2 diabetes mellitus without complications; F41.9 Anxiety disorder, unspecified; Z93.0 Tracheostomy status; I10 Essential (primary) hypertension; F31.9 Bipolar disorder, unspecified; R07.89 Other chest pain; J43.9 Emphysema, unspecified; E66.01 Morbid (severe) obesity due to excess calories; Z68.31 Body mass index [BMI] 31.0-31.9, adult
CPT/HCPCS: 36415; 36600; 71045; 80048; 81001; 81003; 82550; 82553; 82803; 82962; 83036; 83605; 83735; 84100; 84484; 85025; 85610; 85730; 87040-91; 87081; 87086; 93005; 93306; 93970; 94002; 94003; 94640; 94664; 99291-25